=== PATIENT | male | born 1950 | race Caucasian/White ===

== ENCOUNTER → 2017-11-18 | Outpatient (CLI) | payer MEDICARE, OTHER ==
[2017-11-18 11:46] LABS: ANION GAP 4 MEQ/L (8-16); BLOOD UREA NITROGEN 20 MG/DL (7-18); CALCIUM LEVEL 9.5 MG/DL (8.8-10.2); CARBON DIOXIDE LEVEL 34 MEQ/L (21-32); CHLORIDE LEVEL 107 MEQ/L (98-107); GLOMERULAR FILTRATION RATE > 60.0 (>49); GLUCOSE, FASTING 103 MG/DL (70-100); POTASSIUM SERUM 4.8 MEQ/L (3.5-5.1); SODIUM LEVEL 145 MEQ/L (136-145)
== END ==
LOC: M SMT 09:47
DX: R31.0 Gross hematuria (principal)
CPT/HCPCS: 80048

== ENCOUNTER → 2017-11-18 | Outpatient (REF) | payer MEDICARE ==
[2017-11-18 11:56] LABS: APPEARANCE, URINE CLEAR (CLEAR); BACTERIA, URINE AUTO NEGATIVE (NEGATIVE); BILIRUBIN, URINE AUTO NEGATIVE (NEGATIVE); BLOOD, URINE BLOOD NEGATIVE (NEGATIVE); COLOR, URINE YELLOW (YELLOW); GLUCOSE, URINE (UA) AUTO NEGATIVE (NEGATIVE); KETONE, URINE AUTO TRACE mg/dL (NEGATIVE); LEUKOCYTE ESTERASE, URINE AUTO NEGATIVE (NEGATIVE); NITRITE, URINE AUTO NEGATIVE (NEGATIVE); PROTEIN, URINE AUTO NEGATIVE (NEGATIVE); RBC, URINE AUTO 1 /HPF (0-3); SPECIFIC GRAVITY URINE AUTO 1.025 (1.002-1.035); SQUAMOUS EPITHELIAL CELL UR AU 0 /HPF (0-6); WBC, URINE AUTO 1 /HPF (0-3)
== END ==
LOC: M SMT 11:09
DX: R31.0 Gross hematuria (principal)
CPT/HCPCS: 80048; 81001

== ENCOUNTER → 2018-04-03 | Outpatient (CLI) | payer MEDICARE, OTHER ==
[~2018-04-03] MED LIST: ALLO15TA GT; ALTA1CAP3 PO; ALTA1CAP4 PO; ASPI1TAB PO; ATEN50TA2 PO; CIPR500T3 PO; COMBAER6 INH; HUMA100I3 SC; LANTINJ4 SC; OMEP40CA2 PO; OXYC10TA12 PO; PRIL20CA9 PO; TYLE325T5 PO; ZETI10TA30 PO; ZOCO40TA PO; ZYLO300T6 PO
[2018-04-03 13:13] LABS: BLOOD UREA NITROGEN 16 MG/DL (7-18); CALCIUM LEVEL 8.7 MG/DL (8.8-10.2); CARBON DIOXIDE LEVEL 33 MEQ/L (21-32); CHLORIDE LEVEL 106 MEQ/L (98-107); CREATININE FOR GFR 1.06 MG/DL (0.70-1.30); GLOMERULAR FILTRATION RATE > 60.0 (>49); GLUCOSE, FASTING 101 MG/DL (70-100); POTASSIUM SERUM 5.4 MEQ/L (3.5-5.1); SODIUM LEVEL 142 MEQ/L (136-145)
== END ==
LOC: M SMT 09:54
PROVIDERS: ATTEND Nurse Practitioner Women's Health
DX: Q61.00 Congenital renal cyst, unspecified (principal)
CPT/HCPCS: 36415; 80048; G0463

== ENCOUNTER → 2018-05-26 | Outpatient (CLI) | payer OTHER ==
[~2018-05-26] MED LIST changes: +ISOVUE-370 76% 100ML VIAL (Q9967) As Ordered ONE
--- NOTE | 2018-05-26 21:15 | REP ---
Clinical: Renal cysts. Prostate cancer. Comparison: 11/21/2017, 01/31/2009 . Technique: Axial contrast enhanced images from the lung bases to the pubic symphysis using 100 ml Isovue 370 intravenous contrast material with precontrast, arterial phase, and delayed phase images of the abdomen as well as coronal and sagittal re-formations. Findings: Evaluation of the kidneys demonstrate simple low density bilateral cysts which measure up to 2.7 cm in the medial right kidney and 4.3 cm along the posterior lower pole left kidney. Hyperdense proteinaceous cysts are also appreciated along the lateral aspect of the left kidney which measured 3.5 cm maximal diameter. Small bilateral nonobstructing intrarenal calculi measure up to 4 mm in the right kidney and 3 mm in the left kidney. Chronic perinephric stranding noted bilaterally without hydronephrosis or obstructing ureteral calculi. The bilateral ureters and bladder appear grossly normal. Liver, spleen, pancreas, and bilateral adrenal glands are normal. Evidence of prior cholecystectomy. The enteric system is without obstruction or acute inflammatory process. Pelvis demonstrates normal bladder and findings to suggest prior prostatectomy. No ascites. No free air. No adenopathy. Atherosclerotic changes of the aorta noted without aneurysm. Musculoskeletal structures demonstrate degenerative changes without definite focal osseous lesion. Impression: 1. Simple and complex bilateral renal cysts and few nonobstructing intrarenal calculi as scrubbed above. 2. Evidence for prior prostatectomy. 3. No further acute abdominopelvic pathology appreciated. No metastatic disease or recurrence. No ascites. No focal inflammatory stranding. No adenopathy. 4. Lung bases demonstrate fibroatelectatic changes along the anterior lung zones. Electronically Signed by Aleksandr Villegas MD 05/26/2018 09:07 P
== END ==
LOC: M RAD 16:46
PROVIDERS: ATTEND Nurse Practitioner Women's Health
DX: Z85.46 Personal history of malignant neoplasm of prostate (principal); Q61.00 Congenital renal cyst, unspecified; R91.8 Other nonspecific abnormal finding of lung field
CPT/HCPCS: 74178; Q9967